=== PATIENT | female | born 1985 | race Hispanic/Latino ===

== ENCOUNTER 2017-05-01 08:12 | Emergency (ER) | payer OTHER ==
[2017-05-01] MEDS ORDERED: Lidocaine 1% Inj (20ml) ONE (08:21)
[2017-05-01] MEDS ORDERED: Oxycodone/Acetaminophen 5/325 mg Tab ONE (08:21)
[2017-05-01] MEDS ORDERED: Povidone Iodine Topical 10% Sol ONE (08:24)
--- NOTE | 2017-05-01 09:32 | ED PDOC ---
Upper Extremity Pain/Injury Additional Complaint(s): 31F p/w laceration to LEFT, proximal 4th digit with a clean knife while trying to remove an avocado seed. She reports that the finger feels like it is "sleeping". but otherwise not currently in pain. PMH: None PSH: None ALL: PCN <Annette Justice - Last Filed: 05/01/17 10:27> <ShemarJamie - Last Filed: 05/01/17 11:34> Time Seen by Provider: 05/01/17 08:21 Chief Complaint (Nursing): Upper Extremity Problem/Injury Supervising Attending Note - Supervising Attending Note The Documented history was done by the: Physician Appeals Reviewer Veteran The documented physical exam was done by the: Physician Appeals Reviewer Veteran The documented procedures were done by the: Physician Appeals Reviewer Veteran - Attestation: I have personally seen and examined this patient.: Yes I have fully participated in the care of the patient.: Yes I have reviewed all pertinent clinical information: Yes - Notes: Notes:: 31 y/o f with no sig pmh has left 4th ring finger laceration flexor tendons in tact no weakness, states paresthesias to distal finger. discussed car with Dr darin salmeron f/u in office, pt agree's with plan. repeat exam after suture reveals no weakness mild anterior parenthesis no other sx. <ShemarJamie - Last Filed: 05/01/17 11:34> Past Medical History - Medical History PMH: Denies: Chronic Kidney Disease <Annette Justice - Last Filed: 05/01/17 10:27> Reviewed: Historical Data, Nursing Documentation, Vital Signs - Family History Family History: States: Unknown Family Hx <ShemarJamie - Last Filed: 05/01/17 11:34> - Home Medications Home Medications: Ambulatory Orders Medication Instructions Recorded Ibuprofen [Motrin Tab] 600 mg PO QID PRN #30 tab 05/01/17 - Allergies Allergies/Adverse Reactions: Allergies Allergy/AdvReac Type Severity Reaction Status Date / Time Penicillins Allergy ANAPHYLAXIS Verified 05/01/17 08:19 Review of Systems ROS Statement: Except As Marked, All Systems Reviewed And Found Negative Musculoskeletal: Positive for: Other (LEFT 4th digit laceration) <Annette Justice - Last Filed: 05/01/17 10:27> Physical Exam - Reviewed Vital Signs Reviewed: Yes - Physical Exam Appears: Positive for: Well, Non-toxic, No Acute Distress Head Exam: Positive for: ATRAUMATIC, NORMAL INSPECTION Skin: Positive for: Normal Color, Warm, Dry Eye Exam: Positive for: Normal appearance, EOMI, PERRL ENT: Positive for: Normal ENT Inspection Neck: Positive for: Supple Cardiovascular/Chest: Positive for: Regular Rate, Rhythm Respiratory: Positive for: Normal Breath Sounds Pulses-Radial (L): 2+ Pulses-Radial (R): 2+ Gastrointestinal/Abdominal: Positive for: Normal Exam, Soft Extremity: Positive for: Other (LEFT 4th Digit: 2cm laceration down to the ligament which was visualized. Patient has fROM of DIP/PIP/abduction/adduction , cap refill <3s, ulnar/radial pulses palpable, sensation present but attenuated.) <Annette Justice - Last Filed: 05/01/17 10:27> Medical Decision Making Medical Decision MakinF with LEFT 4th digit laceration. - Irrigate, suture, X-ray, Tetanus vaccine <Annette Justice - Last Filed: 05/01/17 10:27> Medical Decision Making: xray 3 views no fx or dislocation no ro fb <Jamie Staton - Last Filed: 05/01/17 11:34> Procedures - Laceration/Wound Repair Left Upper Anterior Proximal Finger Wound Length (cm): 2 Wound's Depth, Shape: linear Wound Explored: no foreign body removed Irrigated w/ Saline (ccs): 250 (mixed with betadine) Betadine Prep?: Yes Anesthesia: 1% Lidocaine Volume Anesthetic (ccs): 3 Wound Debrided: minimal Wound Repaired With: Sutures Suture Size/Type: 5:0, proline Number of Sutures: 6 Layer Closure?: No Wound Complexity: Simple Sterile Dressing Applied?: No Splint Applied?: No Sling Applied?: No <Annette Justice - Last Filed: 05/01/17 10:27> Disposition - Patient ED Disposition Is Patient to be Admitted: No Discussed With DrJose: Constantino Goodman Doctor Will See Patient In The: Office Counseled Patient/Family Regarding: Studies Performed, Diagnosis, Need For Followup, Rx Given - Disposition Disposition: Routine/Home <Annette Justice - Last Filed: 05/01/17 10:27> Discussed With DrJose: Darin See - Disposition Disposition Time: 10:30 <Jamie Staton - Last Filed: 05/01/17 11:34> - Clinical Impression Clinical Impression: Finger laceration - Disposition Referrals: [facility] [Outside] (Follow up at the clinic or with your primary care physician in the next 2 days) Darin See MD [Medical Doctor] - (Follow up on saturday05/03/2017) Condition: GOOD Additional Instructions: Follow up with a hand specialist in one day Prescriptions: Ibuprofen [Motrin Tab] 600 mg PO QID PRN #30 tab PRN Reason: Pain, Mild (1-3) Instructions: Care For Your Stitches (ED), Finger Laceration (ED) Forms: [employer] ([place]), [facility] ED School/Work Excuse
--- NOTE | 2017-05-01 12:22 | RAD ---
PROCEDURE: Left ring finger radiographs. HISTORY: trauma COMPARISON: None. TECHNIQUE: AP radiograph of the left hand, as well as spot oblique and lateral images of left ring finger were obtained. FINDINGS: LEFT RING FINGER: Left ring finger normal, without fracture of focal lesion. Remainder of the left hand (as seen on the AP view) is grossly unremarkable. JOINTS: Normal. SOFT TISSUES: There is laceration in the lateral soft tissues of the proximal ring finger and soft tissue swelling. No radiopaque foreign body. OTHER FINDINGS: None. IMPRESSION: Laceration in the proximal lateral soft tissues of the ring finger with soft tissue swelling. No radiopaque foreign body. No acute fracture or dislocation.
== END 2017-05-01 10:29 | disposition home or self-care (01) ==
LOC: H.ER 08:12
DX: S61.215A Laceration without foreign body of left ring finger without damage to nail, initial encounter (principal); W26.0XXA Contact with knife, initial encounter; Y93.G1 Activity, food preparation and clean up